=== PATIENT | female | born 1990 | race Caucasian/White ===

== ENCOUNTER 2016-09-24 19:51 | Emergency (ER) | payer MEDICAID ==
[2016-09-24 20:09] VITALS: BP 125/74
--- NOTE | 2016-10-18 12:37 | UC ---
General HPI - HPI Summary HPI Summary: Patient presents to the clinic with generalized complaints of just not feeling herself, she states she just feels "off", she has been experiencing tingling of the extremities as well. She reports she saw spots before her eyes that lasted about 10 minutes, and she felt dizzy, land lightheaded. She also complains of generalized pain in both her legs, denies trauma or injury. She states she has been under alot of emotional stress a family member is sick and is going to . She reports that she has not been sleeping well, and having difficulty concentrating. - History of Current Complaint Chief Complaint: UCGeneralIllness Stated Complaint: LEG NUMBNESS,PAIN,JITTERY Time Seen by Provider: 09/24/16 21:31 Hx Obtained From: Patient Hx Last Menstrual Period: one week ago Onset/Duration: Gradual Onset, Lasting Days Timing: Constant Onset Severity: Moderate Current Severity: Moderate Pain Intensity: 0 Associated Signs & Symptoms: Positive: Dizziness - Allergy/Home Medications Allergies/Adverse Reactions: Allergies Allergy/AdvReac Type Severity Reaction Status Date / Time No Known Allergies Allergy Verified 09/24/16 20:09 Home Medications: Home Medications NK [No Home Medications Reported] 09/24/16 [History Confirmed 09/24/16] PMH/Surg Hx/FS Hx/Imm Hx Previously Healthy: Yes - Surgical History Surgical History: Yes Surgery Procedure, Year, and Place: Feb 2012, and November 2015 [facility] [place]. gall bladder removal, CERVICAL BIOPSY 03/03/15 - Family History Known Family History: Negative: Cardiac Disease, Hypertension, Diabetes Family History: NON CONTRIBUTORY - Social History Occupation: Employed Full-time Lives: Alone Alcohol Use: Rare Substance Use Type: None Smoking Status (MU): Current Some Day Smoker Type: Cigarettes Amount Used/How Often: quit 02/2014 Length of Time of Smoking/Using Tobacco: 10 years Have You Smoked in the Last Year: No - Immunization History Most Recent Influenza Vaccination: none Most Recent Tetanus Shot: 2005 Most Recent Pneumonia Vaccination: never Review of Systems Constitutional: Fatigue Neurovascular: Other - tingling of extremities Neurological: Paresthesia All Other Systems Reviewed And Are Negative: Yes Physical Exam Triage Information Reviewed: Yes Appearance: Well-Appearing Vital Signs: Initial Vital Signs Temp 98.0 F 09/24/16 20:05 Pulse 77 09/24/16 20:05 Resp 12 09/24/16 20:05 BP 125/74 09/24/16 20:05 Pulse Ox 100 09/24/16 20:05 Vital Signs Reviewed: Yes Eye Exam: Normal ENT Exam: Normal Neck exam: Normal Respiratory Exam: Normal Cardiovascular Exam: Normal Abdominal Exam: Normal Musculoskeletal Exam: Normal Neurological Exam: Normal Skin Exam: Normal Course/Dx - Course Course Of Treatment: Patient presents with generalized complaints with normal vs , and normal examiantion. She presents with what I feel are somatiform reaction to stress. I do not feel this patient is at risk for stroke given her age. she is in agreement at this time to promote rest, seek counseling, and go to the er if her symtpoms worsen or persist. She was discharged home in [facility]. - Differential Dx - Multi-Symptom Differential Diagnoses: Other - paresthesia Provider Diagnoses: paresthesia Discharge - Discharge Plan Condition: Stable Disposition: HOME Patient Education Materials: Paresthesia (ED) Referrals: [facility] [place] PHYSICIAN REFERRAL [Outside] No Primary Care Phys,NOPCP [Primary Care Provider] -
== END 2016-09-24 21:46 | disposition home or self-care (01) ==
LOC: UCEAST 19:51
DX: R20.2 Paresthesia of skin (principal); R42 Dizziness and giddiness; F43.9 Reaction to severe stress, unspecified; Z90.49 Acquired absence of other specified parts of digestive tract; Z72.0 Tobacco use
CPT/HCPCS: 99211; G0463

== ENCOUNTER 2018-09-16 18:01 | Inpatient (IN) | payer BC, OTHER ==
[2018-09-16] MEDS ORDERED: ceFOXitin 2 GM IVPREMIX* 2 GM/50 ML BAG ONE (18:50)
[2018-09-16] MEDS ORDERED: fentaNYL* 50 MCG/ML 2 ML VIAL (100 MCG VIAL) IV PRN (19:09)
[2018-09-16] MEDS ORDERED: Ondansetron INJ* 2 MG/ML VIAL IV PRN (19:09)
[2018-09-16] MEDS ORDERED: Naloxone* 0.4 MG/ML 1 ML VIAL IV PRN (19:09)
[2018-09-16 19:11] LABS: Urine Benzodiazepine Screen None Detected (None Detect); Urine Opiates Screen None Detected (None Detect)
[2018-09-16] MEDS ORDERED: Varicella Virus Vaccine Live* 0.5 ML VIAL SUBCUT ONE (19:13)
[2018-09-16] MEDS ORDERED: Acetaminophen TAB* 325 MG PO PRN (19:13)
[2018-09-16] MEDS ORDERED: Tetan/Diph/Pertus SYR(Tdap)* 0.5 ML SYR(BOOSTRIX) use SYR IM ONE (19:13)
[2018-09-16] MEDS ORDERED: Witch Hazel PAD* JAR TOPICAL PRN (19:13)
[2018-09-16 19:20] LABS: ABS Eosinophils 0.1 10^3/ul (0-0.6); ABS Lymphocytes 2.1 10^3/ul (1.0-4.8); ABS Monocytes 0.5 10^3/ul (0-0.8); Eosinophil % 0.9 %; Hematocrit 38 % (35-47); Hemoglobin 13.1 g/dL (12.0-16.0); Lymphocyte % 21.7 %; Mean Corpuscular HGB Conc 34 g/dL (31-36); Mean Corpuscular Hemoglobin 29 pg (27-31); Mean Corpuscular Volume 84 fL (80-97); Mean Platelet Volume 10.5 fL (7.4-10.4); Platelet Count 163 10^3/uL (150-450); Red Blood Count 4.56 10^6 /uL (3.70-4.87); Red Cell Distribution Width 15 % (10-15); White Blood Count 9.7 10^3/uL (3.5-10.8)
[2018-09-16] MEDS ORDERED: Phenylephrine 40 MCG/ML SYRINGE ONE (19:52)
[2018-09-16] MEDS ORDERED: EPHEDrine (Pressors)* 50 MG/ML VIAL ONE (19:52)
[2018-09-16] MEDS ORDERED: Lactated Ringers 1000 ML Bag* 1,000 ML IV SCH (20:00)
[2018-09-16] MEDS ORDERED: OXYTOCIN* 10 UNITS/ML 1 ML VIAL ONE (20:03)
[2018-09-16] MEDS ORDERED: Ondansetron INJ* 2 MG/ML VIAL ONE (20:24)
[2018-09-16] MEDS ORDERED: Ketorolac INJ* 30 MG/ML 1 ML VIAL ONE (20:24)
[2018-09-16] MEDS: oxyCODONE/Acetamin 5/325 MG* TAB PO PRN (22:16)
--- NOTE | 2018-09-16 22:39 | OP ---
DATE OF OPERATION: 09/16/18 - ROOM #103 DATE OF : 88 SURGEON: Kt Ibarra MD STORM CHASER: Danii Perry CNM ANESTHESIOLOGIST: Dr. Chacon. ANESTHESIA: Spinal. PRE-OP DIAGNOSIS: 38 weeks' gestation with history of twoprior sections, active labor. POST-OP DIAGNOSIS: 38 weeks' gestation with history of two prior sections, active labor. OPERATIVE PROCEDURE: Repeat low transverse section. ESTIMATED BLOOD LOSS: 700 cc. URINE OUTPUT: 200 cc. IV FLUIDS: 1800 cc lactated ringers. MATERIALS TO LAB: Cord blood. INDICATIONS: This patient is a 28-year-old 3, para 2, scheduled for repeat section this coming week. Tonight she presented with contractions that have been going on for the last day and becoming much stronger and about every 4 minutes over the last several hours. Cervical examination was 3 cm and the decision was made to proceed with repeat section tonight for labor. She is extensively counseled and consent was signed. FINDINGS: Normal-appearing uterus, fallopian tubes, and ovaries with appropriate amount of scar tissue from previous surgeries. Delivery is productive of a male weighing 7 pounds and 9 ounces with Apgars 9 and 9. Time of delivery was 2011. COMPLICATIONS: None. DESCRIPTION OF PROCEDURE: The risks, benefits, and alternatives were described to the patient, and informed consent was obtained. The patient was taken to the operating room with IV running, where spinal anesthesia was induced and found to be adequate. The patient was prepped and draped in normal sterile fashion in the dorsal supine position with a leftward tilt. A Pfannenstiel skin incision was made with a scalpel through the patient's previous incision. This was carried down to the underlying fascia using the scalpel. The fascia was scored in the midline, and the incision was extended using Nicole scissors. The fascia was dissected off the underlying rectus muscles using blunt and sharp dissection. The rectus muscles were in the midline using dissection with a Vivien clamp. The peritoneum was then entered bluntly. A bladder blade was placed. A bladder flap was created sharply using Metzenbaum scissors. A low transverse uterine incision was then made with the scalpel. This was carried down to the amniotic membranes. The membranes were then ruptured, productive of clear fluid. The uterine incision was extended using blunt traction. The head was elevated to the level of the incision, and, with fundal pressure, the head delivered without difficulty. The shoulders then were also both delivered and the body followed. The infant had excellent tone and cried immediately on delivery. The cord was doubly clamped and cut. The infant was then handed to the awaiting teaching aide. Cord blood was collected. The placenta was delivered with manual extraction. The uterus was then exteriorized and cleared of all clots and debris. The uterine incision was then reapproximated using 0 Polysorb in a running-locked fashion. A second layer of imbricating 0 Polysorb sutures was then also placed for good hemostasis. The posterior cul-de-sac was irrigated with saline. The uterus was then returned to the abdomen. The incision was reinspected and still noted to be hemostatic. The peritoneum was closed with 2-0 chromic in a running fashion. The fascia was closed with 0 Polysorb in a running fashion. The subcutaneous tissues were copiously irrigated and made hemostatic using the Bovie. The subcutaneous tissues were then reapproximated using 2-0 chromic in interrupted sutures. The skin was then closed with . A sterile bandage was then placed over the incision. The patient tolerated the procedure well. Sponge, lap, and needle counts were correct x2. [id number]/[facility] #: [id number] JANNA
[2018-09-17] MEDS: oxyCODONE/Acetamin 5/325 MG* TAB PO PRN ×5 (01:50→19:54)
[2018-09-17] MEDS: Ketorolac INJ* 30 MG/ML 1 ML VIAL IV PUSH SCH ×2 (02:33→09:05)
[2018-09-17 06:30] LABS: ABS Eosinophils 0.1 10^3/ul (0-0.6); ABS Lymphocytes 1.7 10^3/ul (1.0-4.8); ABS Monocytes 0.7 10^3/ul (0-0.8); ABS Neutrophils 9.4 10^3/ul (1.5-7.7); Eosinophil % 0.5 %; Hematocrit 33 % (35-47); Hemoglobin 11.1 g/dL (12.0-16.0); Lymphocyte % 14.7 %; Mean Corpuscular HGB Conc 33 g/dL (31-36); Mean Corpuscular Hemoglobin 28 pg (27-31); Mean Corpuscular Volume 84 fL (80-97); Platelet Count 128 10^3/uL (150-450); Red Blood Count 3.99 10^6 /uL (3.70-4.87); Red Cell Distribution Width 15 % (10-15); White Blood Count 11.9 10^3/uL (3.5-10.8)
[2018-09-17] MEDS ORDERED: Ferrous Gluconate TAB* 324 MG TAB PO SCH (09:00)
[2018-09-17] MEDS: Simethicone TAB* 80 MG TAB.CHEW PO SCH ×4 (09:05→19:54)
[2018-09-17] MEDS: Docusate CAP* 100 MG PO SCH ×3 (09:05→19:53)
[2018-09-17] MEDS: Ondansetron ODT TAB* 4 MG SL PRN (13:41)
[2018-09-17] MEDS: Ibuprofen TAB* 600 MG PO PRN ×2 (15:42→21:43)
[2018-09-18] MEDS: oxyCODONE/Acetamin 5/325 MG* TAB PO PRN ×3 (00:20→11:53)
[2018-09-18] MEDS: Ibuprofen TAB* 600 MG PO PRN (03:37)
[2018-09-18 07:58] VITALS: BP 105/62
[2018-09-18] MEDS: Docusate CAP* 100 MG PO SCH (08:05)
[2018-09-18] MEDS: Ondansetron ODT TAB* 4 MG SL PRN (08:05)
[2018-09-18] MEDS: Simethicone TAB* 80 MG TAB.CHEW PO SCH (08:05)
== END 2018-09-18 12:21 | disposition home or self-care (01) | DRG 540 ==
LOC: MCHOBOUT 18:01 → MCHOB 18:26
PROVIDERS: ADMIT Obstetrics & Gynecology; ATTEND Obstetrics & Gynecology
PROC: 4A1HXCZ Monitoring of Products of Conception, Cardiac Rate, External Approach (ICD-10-PCS; 2018-09-16)
PROC: 10D00Z1 Extraction of Products of Conception, Low, Open Approach (ICD-10-PCS; principal; 2018-09-16 19:35)
DX: O34.211 Maternal care for low transverse scar from previous cesarean delivery (principal); O99.824 Streptococcus B carrier state complicating childbirth; Z3A.38 38 weeks gestation of pregnancy; Z37.0 Single live birth
CPT/HCPCS: 36415; 80307; 85025; 86850; 86900; 86901; A9270-GY; J0694; J1885; J2405; J2590

== ENCOUNTER 2022-11-23 05:15 | Inpatient (IN) ==
[2022-11-23] MEDS ORDERED: Sodium Citrate/Citric Acid LIQ 15 ML UDC PO ONE (06:00)
[2022-11-23] MEDS ORDERED: Buffered Lidocaine 1% SYRIN 1 ml INTRADERM ONE (06:00)
[2022-11-23] MEDS ORDERED: Lactated Ringers 1000 ml BAG 1,000 ML IV ONE (06:00)
[2022-11-23 06:07] LABS: ABS Basophils 0.1 10^3/uL (0.0-0.1); ABS Eosinophils 0.2 10^3/uL (0.0-0.5); ABS Lymphocytes 2.6 10^3/uL (1.0-4.8); ABS Monocytes 0.8 10^3/uL (0.0-0.9); ABS Neutrophils 6.8 10^3/uL (1.5-7.6); Eosinophil % 1.6 %; Hematocrit 30.9 % (35-45); Hemoglobin 10.6 g/dL (11.5-14.3); Lymphocyte % 24.8 %; Mean Corpuscular Hemoglobin 27.8 pg (27-33); Mean Corpuscular Hgb Conc 34.2 g/dL (31-36); Mean Corpuscular Volume 81.1 fL (80-97); Mean Platelet Volume 10.3 fL (7.5-11.2); Platelet Count 166 10^3/uL (150-450); Red Blood Count 3.81 10^6/uL (3.63-4.92); Red Cell Distribution Width 13.9 % (12-17); White Blood Count 10.4 10^3/uL (3.8-11.8)
[2022-11-23] MEDS ORDERED: ceFOXitin 2 GM IVPREMIX 2 GM/50 ML BAG IVPB ONE (07:00)
[2022-11-23] MEDS ORDERED: Lactated Ringers 1000 ml BAG 1,000 ML IV SCH ×2 (07:00→10:00)
[2022-11-23] MEDS ORDERED: Metoclopramide 5 MG/ML VIAL (10 mg) IV PRN (07:02)
[2022-11-23] MEDS ORDERED: Acetaminophen IV 1 GM/100ML 1,000 MG/100 ML BAG IV PRN (07:02)
[2022-11-23] MEDS ORDERED: Naloxone 0.4 mg VIAL 0.4 mg/ml 1 ml VIAL IV PUSH PRN (07:02)
[2022-11-23] MEDS ORDERED: Ondansetron 4 mg VIAL 2 MG/ML 2 ml VIAL IV PRN (07:02)
[2022-11-23] MEDS ORDERED: Ondansetron 4 mg VIAL 2 MG/ML 2 ml VIAL ONE (07:30)
[2022-11-23] MEDS ORDERED: Oxytocin 10 UNITS/ML 1 ML VIAL ONE (07:30)
[2022-11-23] MEDS ORDERED: Phenylephrine 40 mcg/mL 10mL (400mcg) SYRINGE ONE (07:30)
[2022-11-23] MEDS ORDERED: Bupivacaine-MPF SPINAL 7.5 MG/ML - 2ML AMP ONE (07:36)
[2022-11-23] MEDS ORDERED: Phenylephrine IV 10 MG/ML 1 ml VIAL ONE (07:58)
[2022-11-23] MEDS ORDERED: Acetaminophen IV 1 GM/100ML 1,000 MG/100 ML BAG IV ONE (08:30)
[2022-11-23] MEDS ORDERED: fentaNYL 100 mcg/2 ml 50 MCG/ML VIAL ONE (08:33)
[2022-11-23] MEDS ORDERED: Glycerin ADULT 2.4 gm SUPP PR PRN (09:49)
[2022-11-23] MEDS ORDERED: Witch Hazel PAD JAR TOPICAL PRN (09:49)
[2022-11-23] MEDS ORDERED: Oxytocin in LR 20,000 MILLI.UNIT/1,000 ML BAG IV SCH (09:50)
[2022-11-23 09:53] LABS: Urine Appearance Clear; Urine Bilirubin Negative (Negative); Urine Blood Negative (Negative); Urine Color Straw; Urine Glucose Negative (Negative); Urine Ketones Negative (Negative); Urine Nitrite Negative (Negative); Urine Protein Negative (Negative); Urine Specific Gravity 1.004 (1.002-1.030); Urine Urobilinogen Negative (Negative)
[2022-11-23 09:54] LABS: Urine Bacteria Absent (Absent); Urine Red Blood Cell Trace(0-2/hpf) (Absent); Urine White Blood Cell Trace(0-5/hpf) (Absent)
[2022-11-23 10:33] LABS: Urine Benzodiazepine Screen None Detected (None Detect); Urine Cannabinoids Screen None Detected (None Detect); Urine Opiates Screen None Detected (None Detect)
[2022-11-24 07:19] LABS: ABS Basophils 0.1 10^3/uL (0.0-0.1); ABS Eosinophils 0.2 10^3/uL (0.0-0.5); ABS Monocytes 0.7 10^3/uL (0.0-0.9); ABS Neutrophils 9.4 10^3/uL (1.5-7.6); ABS Nucleated RBC 0.01 10^3/ul; Eosinophil % 1.7 %; Hematocrit 29.1 % (35-45); Hemoglobin 9.8 g/dL (11.5-14.3); Lymphocyte % 15.8 %; Mean Corpuscular Hemoglobin 27.7 pg (27-33); Mean Corpuscular Hgb Conc 33.8 g/dL (31-36); Mean Corpuscular Volume 81.8 fL (80-97); Mean Platelet Volume 9.9 fL (7.5-11.2); Nucleated Red Blood Cells % 0.1 /100 WBC (0.0-0.4); Platelet Count 158 10^3/uL (150-450); Red Blood Count 3.55 10^6/uL (3.63-4.92); Red Cell Distribution Width 14.2 % (12-17); White Blood Count 12.3 10^3/uL (3.8-11.8)
[2022-11-24 09:26] VITALS: BP 102/59
== END 2022-11-24 12:50 | disposition home or self-care (01) | DRG 540 ==
LOC: MCHOB 05:15
PROVIDERS: ADMIT Obstetrics & Gynecology; ATTEND Obstetrics & Gynecology